=== PATIENT | male | born 1990 | race Caucasian/White ===

== ENCOUNTER 2025-01-13 13:14 | Emergency (ER) | payer OTHER, SELFPAY ==
[2025-01-13 13:25] VITALS: BP 147/92
[2025-01-13 13:45] LABS: % Basophils 0.4 % (0-2); % Eosinophils 0.4 % (0-6); % Immature Granulocytes 0.2 % (0-0.5); % Lymphocytes 10.7 % (20.5-51.1); % Neutrophils 82.3 % (42.2-75.2); Absolute Lymphocytes 0.9 10^3/uL (1.2-3.4); Absolute Monocytes 0.5 10^3/uL (0.1-0.6); Absolute Neutrophils 6.7 10^3/uL (1.4-6.5); Hematocrit 43.4 % (39.0-52.0); Mean Corp Hgb Conc. 34.6 g/dL (33.0-37.0); Mean Corpuscular Hgb 28.8 pg (27.0-31.0); Mean Corpuscular Volume 83.3 fL (80.0-94.0); Mean Platelet Volume 10.5 fL (7.4-10.4); Nucleated Red Blood Cells % 0 % (-); Platelet Count 169 10^3/uL (130-400); Red Blood Cell Count 5.21 10^6/uL (4.70-6.10); Red Cell Dist. Width 12.9 % (11.5-14.5); White Blood Cell Count 8.1 10^3/uL (4.8-10.8)
[2025-01-13 13:55] LABS: ALT (SGPT) 20 U/L (0-50); AST (SGOT) 21 U/L (17-59); Albumin 4.4 g/dl (3.5-5.0); Alkaline Phosphatase 48 U/L (38-126); Blood Urea Nitrogen 23 mg/dl (9-20); Calcium 9.5 mg/dl (8.4-10.2); Carbon Dioxide 25 mmol/L (22-30); Chloride 104 mmol/L (98-107); Glucose 108 mg/dl (70-99); Lipase 99 U/L (23-300); Potassium 4.2 mmol/L (3.5-5.1); Sodium 139 mmol/L (135-145); Total Bilirubin 1.8 mg/dl (0.2-1.3); Total Protein 7.5 g/dl (6.3-8.2); eGFR > 60.00
[2025-01-13] MEDS: NSS 1000 IV (15:03)
[2025-01-13] MEDS: TORADOL 30 MG IV (15:03)
[2025-01-13] MEDS: ZOFRAN 4 MG IV (15:03)
--- NOTE | 2025-01-13 15:09 | ED.GENMED ---
History of Present Illness
General
Chief Complaint: Abdominal Symptoms
Source: patient
Time Seen by Provider: 01/13/25 14:34
History of Present Illness
History of Present Illness:
34-year-old male with no significant past medical history presents to the emergency department for evaluation of nausea vomiting and diarrhea over the last 2 days, continued abdominal pain today prompting the patient to come to the ER for further
evaluation. Patient states he had a fever with Tmax of 39 Celsius yesterday, none today and states that while he attempted to take Motrin and Tylenol he was not able to keep this medication down. He denies any known sick contacts, recent travel or
recent antibiotics. Does note a surgical history of previous appendectomy. States most of the abdominal discomfort he is currently experiencing is in the upper part of his abdomen from the epigastrium to the left upper quadrant.
Past History
Past History
ED Past Medical History: None
ED Past Surgical History: Appendectomy
Social History
Tobacco: Non-smoker
Alcohol: Occasional
Drug: None
Personal:
Living: with family
Employment: Employed
Review of Systems
Review of Systems
All Other Systems: ROS reviewed and negative except as documented in HPI and ROS
Phy Exam
Physical Exam
Physical Exam:
GENERAL: Alert , in no apparent distress but does appear uncomfortable and
EYE: clear conjunctiva b/l
HEAD: NCAT
ENT: mmm.
CARDIAC: Regular rate and rhythm .
LUNGS: Clear breath sounds bilaterally, no acute respiratory distress, no wheezes/rales/rhonchi
ABDOMEN: Soft, tender within the epigastrium and left upper quadrant, no r/g, no cvat, negative Banuelos sign
NEUROLOGICAL: Alert and oriented
SKIN: Warm and dry, skin intact.
MUSCULOSKELETAL: No edema, well perfused.
PSYCH: Normal and appropriate interaction.
Scores
Heart Failure Risk
Heart Failure Risk Score: Not Applicable
Heart Score for Chest Pain Patients
STEMI patient?: Not applicable
Withdrawal Assessment of Alcohol
Withdrawal Assessment Completed?: Not applicable
Course
Orders/Labs/Results
Orders:
Orders
01/13/25 13:31
Complete Blood Count/With Diff Urgent
Comprehensive Metabolic Panel Urgent
Lipase Urgent
01/13/25 14:43
0.9% Sodium Chloride 1000 ml [Nss] 1,000 ml IV BOLUS
Ketorolac [Toradol] 30 mg IV NOW STA
Ondansetron Injectable [Zofran] 4 mg IV NOW STA
Abnormal Lab Results
01/13/25
13:
MPV 10.5 H fL
(7.4-10.4)
Absolute Neuts (auto) 6.7 H 10^3/uL
(1.4-6.5)
Absolute Lymphs (auto) 0.9 L 10^3/uL
(1.2-3.4)
Neutrophils % 82.3 H %
(42.2-75.2)
Lymphocytes % 10.7 L %
(20.5-51.1)
BUN 23 H mg/dl
(9-20)
Glucose 108 H mg/dl
(70-99)
Total Bilirubin 1.8 H mg/dl
(0.2-1.3)
01/13/25 13:31
01/13/25 13:31
Vital Signs
Initial and Last Documented VS:
Initial Vital Signs
Temp Pulse Resp BP Pulse Ox
98.0 F 88 18 147/92 99
01/13/25 13:25 01/13/25 13:25 01/13/25 13:25 01/13/25 13:25 01/13/25 13:25
Last Documented Vital Signs
Temp Pulse Resp BP Pulse Ox
98.0 F 80 18 123/71 98
01/13/25 13:25 01/13/25 17:05 01/13/25 17:05 01/13/25 17:05 01/13/25 17:05
MDM/Problems Addressed
Differential Diagnosis Includes:
Gastroenteritis, GERD/gastritis/duodenitis, pancreatitis, cholecystitis
MDM/Problems Addressed:
34-year-old male presenting the ER for evaluation of nausea vomiting diarrhea which all started acutely about 2 days ago, symptoms persisting today. Patient reports fever at home however he is afebrile here. He does appear uncomfortable but in no
acute distress. Labs initiated on arrival are largely reassuring. No leukocytosis send normal LFTs, electrolytes and renal function. Patient does have mild prerenal azotemia and will treat with normal saline. Toradol and Zofran ordered for
symptomatic relief. Disposition pending.
Chronic conditions affecting care: Previous abdomnial surgery
*Pulse Oximetry
Patient hypoxic: no
*Critical Care Note
Total Time (30-74mins, 75-104mins- exclusive of procedures): Not Applicable
Patient Management
Escalation/DeEscalation of care consider admission/obs:
Patient's patient felt much improved. He was able to tolerate p.o. liquids without any difficulty. He feels comfortable being discharged home. Aware of return precautions to the ER.
ED Attending Note
-
Portions of this chart may have been created with voice recognition software.� Occasional wrong word or��sound alike� substitutions may have occurred due to the inherent limitations of voice recognition software.
Discharge Plan
Departure
Patient Disposition: Home (Routine Discharge)
Date of Disposition: 01/13/25
Time of Disposition: 16:53
Patient with high blood pressure during this ER visit?: No
Discharge Problem:
Nausea, vomiting, and diarrhea
Instructions: Nausea and Vomiting, Adult (DC)
Prescriptions:
New
ondansetron 4 mg tablet,disintegrating
4 mg PO TIDPRN PRN (Reason: nausea/vomiting) Qty: 8 0RF
Referrals:
NONE,* [Family Provider] -
Interventions
Interventions:
*Risk Screen - Suicide Last Done: 01/13/25 13:25
*General Assessment Last Done: 01/13/25 15:15
*Neglect/Abuse Screening Last Done: 01/13/25 14:17
*ED- Fall Risk Assessment Last Done: 01/13/25 15:15
*ED COVID-19 Vaccine History Last Done: 01/13/25 14:17
*Nursing Disposition Last Done: 01/13/25 17:06
XG-Eejcpk-Fuuutkmjqw Assessment Last Done: 01/13/25 15:15
Discharge Date and Time
Discharge Date/Time: 01/13/25 17:27
Print Language: HUNGARIAN
[2025-01-13 17:05] VITALS: BP 123/71
== END 2025-01-13 17:27 | disposition home or self-care (01) ==
LOC: EMR 13:14
PROVIDERS: Emergency Medicine; EMERGENCY PHYSICIAN Student in an Organized Health Care Education/Training Program
DX: R11.2 Nausea with vomiting, unspecified (principal); R19.7 Diarrhea, unspecified; Z90.49 Acquired absence of other specified parts of digestive tract
CPT/HCPCS: 96374; 96375; 99284; 80053; 83690; 85025